=== PATIENT | male | born 1950 | race Caucasian/White ===

== ENCOUNTER 2019-01-21 07:27 | Day surgery (SDC) | payer MEDICARE, OTHER ==
[~2019-01-21] VITALS: Ht 170.2 cm; Wt 64.0 kg
[~2019-01-21 07:27] MED LIST: CALC500T99 PO; CHOL2000 PO; FURO40TA4 PO; GLYC1TAB PO; LIDOCAINE 2% (SDV) 5 ML INJ ONE; LUBI24CA7 PO
--- NOTE | 2019-01-21 08:16 | PREAC ---
Date/Time of Note Date/Time of Note DATE: 01/21/19 TIME: 08:13 Anesthesia Eval and Record Evaluation Time Pre-Procedure Interview DATE: 01/21/19 TIME: 08:13 Age 68 Sex male NPO: 8 hrs Preoperative diagnosis h/o colon polyps Planned procedure colonoscopy Past Medical History Past Medical History: Includes GI: Other (h/o colon polyps) Psych: Other (congitive disability, abtunded) Surgery & Anesthesia Issues No known issue Meds Anticoagulation: No Beta Evie within 24 hr: No Reason Beta Evie not given: Pt. not on B-Evie Reported Medications Glycopyrrolate* (Glycopyrrolate*) 1 Mg Tablet, 1 MG PO TID, TAB 06/30/16 Calcium Carbonate ([id number]) 1 Tab Tablet, 1 TAB PO, TAB 06/30/16 Lubiprostone* (Amitiza*) 24 Mcg Capsule, 24 MCG PO BID, #60 CAP 06/30/16 Cholecalciferol* (Vitamin D3*) 2,000 Unit Cap, 2000 UNIT PO DAILY, CAP 06/30/16 Furosemide* (Furosemide*) 40 Mg Tablet, 40 MG PO DAILY, TAB 06/30/16 Meds reviewed: Yes Allergies Coded Allergies: Penicillins (Verified Allergy, Unknown, 06/30/16) Allergies Reviewed: Yes Labs/Studies Labs Reviewed: Reviewed by anesthesiologist test: N/A Studies: ECG, CXR Pre-procedure Exam Airway: Adequate mouth opening, Adequate thyromental dist Mallampati: Mallampati III Teeth: Normal Lung: Normal Heart: Normal ASA Physical Status ASA physical status: 3 Emergency: None Planned Anesthetic General/MAC: MAC Planned Pain Management Parenteral pain med Pre-operative Attestations Prior to commencing anesthesia and surgery, the patient was re-evaluated, there was verification of: *The patient's identity *The results of appropriate recent lab work and preoperative vital signs *The above evaluation not changing prior to induction *Anesthetic plan, risk benefits, alternative and complications discussed with patient/family; questions answered; patient/family understands, accepts and wishes to proceed. CURTIS SANCHEZ MD Jan 21, 2019 08:16
[2019-01-21] MEDS ORDERED: PROPOFOL 40 ML ONE (08:17)
[2019-01-21] MEDS ORDERED: polyethylene glycol (08:27)
[2019-01-21] MEDS ORDERED: amitiza (08:27)
[2019-01-21] MEDS ORDERED: milk of magnesia (08:27)
[2019-01-21] MEDS ORDERED: glycopyrolate (08:27)
[2019-01-21] MEDS ORDERED: aquaphor (08:27)
[2019-01-21] MEDS ORDERED: furosemide (08:27)
[2019-01-21 10:24] VITALS: Ht 170.2 cm; Wt 64.0 kg
[2019-01-21 10:35] VITALS: BP 74/38; PULSE 55; RESP 14
[2019-01-21 11:34] VITALS: BP 122/55; RESP 18
--- NOTE | 2019-01-21 12:26 | PAC ---
Date/Time of Note Date/Time of Note DATE: 01/21/19 TIME: 12:26 Post-Anesthesia Notes Post-Anesthesia Note Last documented vital signs Vital Signs Date Temp Pulse Resp B/P (MAP) Pulse Ox O2 O2 Flow FiO2 Time Delivery Rate 01/21/19 18 122/55 97 11:34 (77) 01/21/19 98.2 55 Room Air 10:35 Activity: WNL Respiratory function: WNL Cardiovascular function: WNL Mental status: Baseline Pain reasonably controlled: Yes Hydration appropriate: Yes Nausea/Vomiting absent: Yes CURTIS SANCHEZ MD Jan 21, 2019 12:26
== END 2019-01-21 12:31 | disposition home or self-care (01) ==
LOC: GIL 07:27
PROVIDERS: ATTEND Internal Medicine Gastroenterology
DX: Z86.010 Personal history of colon polyps (principal); K64.1 Second degree hemorrhoids